=== PATIENT | male | born 1945 | race Caucasian/White ===

== ENCOUNTER 2017-07-24 18:12 | Outpatient (RCR) | payer MEDICARE, OTHER ==
[~2017-07-24] VITALS: Ht 177.8 cm; Wt 117.2 kg
[2017-07-24 08:33] VITALS: BP 120/83; PULSE 88; TEMP 98
[2017-07-24 08:36] LABS: INR 2.6 (0.8-3.0); PROTHROMBIN TIME 30.6 SECONDS (9.7-12.8)
[2017-07-24 08:49] LABS: CREATININE, serum 0.93 mg/dL (0.66-1.25)
[~2017-07-24 18:12] MED LIST: AMBIEN 10MG10 MG PO; ASPIRIN E.C. 8181 MG PO; CARDURA4 MG PO; COREG 3.123.125 MG/T PO; COUMADIN 1010 MG/TAB PO; KLONOPIN 1MG1 MG PO; LIPITOR 10MG10 MG PO; LOVENOX 100100 MG/ML SQ; MAXIPIME2 GM IJ; NEURONTIN300 MG/CAP PO; VALIUM 5MG T5 MG/TAB PO; VANCOCIN HCL 5200 ML IV; ZANTAC 150MG T150 MG PO; ZESTRIL 10MG10 MG PO
[2017-07-25 07:43] VITALS: BP 155/84; PULSE 85; TEMP 99.1
[2017-07-25] MEDS ORDERED: MELATONIN5 M1 PO (07:53)
[2017-07-25] MEDS ORDERED: FOLIC ACID0.4 MG PO (07:53)
[2017-07-25 08:32] LABS: INR 2.2 (0.8-3.0); PROTHROMBIN TIME 26.1 SECONDS (9.7-12.8)
[2017-07-26 06:50] LABS: INR 2.2 (0.8-3.0); PROTHROMBIN TIME 26.1 SECONDS (9.7-12.8)
[2017-07-26 08:23] VITALS: BP 168/90; PULSE 88; TEMP 98.2
== END 2017-07-26 16:00 | disposition home or self-care (01) ==
LOC: EUO 07-25 06:56
PROVIDERS: Emergency Medicine
DX: M86.9 Osteomyelitis, unspecified (principal)
CPT/HCPCS: J0692; J3370; J7040

== ENCOUNTER → 2017-08-02 | Outpatient (CLI) | payer MEDICARE, OTHER ==
[~2017-08-02] MED LIST changes: +FOLIC ACID0.4 MG PO; +MELATONIN5 M1 PO
== END ==
LOC: ZCOL.LAB 13:51
DX: S91.102A Unspecified open wound of left great toe without damage to nail, initial encounter (principal)

== ENCOUNTER 2017-08-16 10:54 | Day surgery (SDC) | payer MEDICARE, OTHER ==
[~2017-08-16] VITALS: Ht 177.8 cm; Wt 111.8 kg
[2017-08-16 12:09] VITALS: BP 163/95; PULSE 95; TEMP 97.6
[2017-08-16] MEDS ORDERED: COUMADIN 1010 MG/TAB PO (12:19)
[2017-08-16] MEDS ORDERED: NEURONTIN100 MG/CAP PO (12:23)
[2017-08-16] MEDS ORDERED: MOBIC15 MG PO (12:24)
[2017-08-16] MEDS ORDERED: DOXYCYCLINE 10100 MG PO (12:28)
[2017-08-16] MEDS ORDERED: CLEOCIN HCL75 MG PO (12:29)
[2017-08-16] MEDS ORDERED: MINOCYCLIN100 MG/CAP PO (12:30)
[2017-08-16] MEDS ORDERED: B-121000 MCG PO (12:32)
[2017-08-16] MEDS ORDERED: MASON NATURAL2000 IU (12:33)
[2017-08-16] MEDS ORDERED: VITAMIN B3 PO (12:34)
[2017-08-16] MEDS ORDERED: BIOTIN5000 MCG PO (12:35)
[2017-08-16] MEDS ORDERED: VITAMIN C500 MG PO (12:35)
[2017-08-16] MEDS ORDERED: CALCIUM CARBON650 M2 PO (12:36)
[2017-08-16] MEDS ORDERED: MAGNESIUM200 MG PO (12:36)
[2017-08-16] MEDS ORDERED: TYLENOL 500MG500 MG PO (12:37)
[2017-08-16 15:17] VITALS: BP 167/59; PULSE 102; TEMP 98.5
[2017-08-16 15:30] VITALS: BP 117/78; PULSE 104
[2017-08-16 16:00] VITALS: BP 151/77; PULSE 82
== END 2017-08-16 16:45 | disposition home or self-care (01) ==
LOC: SDCO 10:54
DX: L97.529 Non-pressure chronic ulcer of other part of left foot with unspecified severity (principal); L08.9 Local infection of the skin and subcutaneous tissue, unspecified; K21.9 Gastro-esophageal reflux disease without esophagitis; I10 Essential (primary) hypertension; I25.10 Atherosclerotic heart disease of native coronary artery without angina pectoris; G47.33 Obstructive sleep apnea (adult) (pediatric); E78.5 Hyperlipidemia, unspecified; Z79.82 Long term (current) use of aspirin; Z79.01 Long term (current) use of anticoagulants; Z88.0 Allergy status to penicillin; Z88.2 Allergy status to sulfonamides
CPT/HCPCS: J0690; J2704; J2795; J3010; J3370; J7030; J7120

== ENCOUNTER → 2020-05-14 | Outpatient (CLI) | payer MEDICARE, OTHER ==
[~2020-05-14] MED LIST changes: +B-121000 MCG PO; +BIOTIN5000 MCG PO; +CALCIUM CARBON650 M2 PO; +CLEOCIN HCL75 MG PO; +DOXYCYCLINE 10100 MG PO; +MAGNESIUM200 MG PO; +MASON NATURAL2000 IU; +MINOCYCLIN100 MG/CAP PO; +MOBIC15 MG PO; +NEURONTIN100 MG/CAP PO; +TYLENOL 500MG500 MG PO; +VITAMIN B3 PO; +VITAMIN C500 MG PO
== END ==
LOC: MHCPAIN 09:13
DX: M47.817 Spondylosis without myelopathy or radiculopathy, lumbosacral region (principal); M54.16 Radiculopathy, lumbar region; M79.2 Neuralgia and neuritis, unspecified; G89.29 Other chronic pain; G57.01 Lesion of sciatic nerve, right lower limb
CPT/HCPCS: G0463

== ENCOUNTER → 2020-06-20 | Outpatient (CLI) | payer MEDICARE, OTHER ==
[~2020-06-20] MED LIST changes: +ASPIRIN 81M81 MG/TA2 PO; +LOVENOX120 MG/0.8 SQ; +NITROSTAT0.4 MG/TAB SL; +NORCO 325 MG-101 TAB PO; +NORVASC 5MG5 MG/TAB PO; +PLAVIX 75MG TAB75 MG PO; +PRAVACHOL 20MG20 MG PO; +PROTONIX 40MG T40 MG PO; +VITAMIN B-625 MG PO
== END ==
LOC: COL.PUL 07:27
DX: R06.02 Shortness of breath (principal)

== ENCOUNTER → 2020-06-28 | Outpatient (CLI) | payer MEDICARE, OTHER | LOC: COL.RAD 06:39 | DX: R06.00 Dyspnea, unspecified (principal) | CPT/HCPCS: Q9967 ==

== ENCOUNTER 2020-07-16 08:30 | Outpatient (RCR) | payer MEDICARE, OTHER ==
[~2020-07-16 08:30] MED LIST changes: -ASPIRIN 81M81 MG/TA2 PO; -LOVENOX120 MG/0.8 SQ; -NITROSTAT0.4 MG/TAB SL; -NORCO 325 MG-101 TAB PO; -NORVASC 5MG5 MG/TAB PO; -PLAVIX 75MG TAB75 MG PO; -PRAVACHOL 20MG20 MG PO; -PROTONIX 40MG T40 MG PO; -VITAMIN B-625 MG PO
== END 2020-08-25 | disposition still patient (30) ==
LOC: WSPT
DX: M47.896 Other spondylosis, lumbar region (principal)

== ENCOUNTER 2020-09-27 06:20 | Day surgery (SDC) | payer MEDICARE, OTHER ==
[~2020-09-27] VITALS: Ht 177.8 cm; Wt 113.5 kg
[2020-09-27] VITALS (15 sets, daily range): BP systolic 94–130; BP diastolic 54–74; PULSE 33–73; TEMP 97.5–98; O2SAT 81
[2020-09-27] MEDS ORDERED: VITAMIN B-625 MG PO (06:43)
[2020-09-27 07:07] LABS: HEMOGLOBIN 15.8 g/dl (13.5-18.0); MEAN CELL VOLUME 91 fl (80.0-100.0); MEAN CORPUSCULAR HEMOGLOBIN 31 pg (27.0-31.0); MEAN CORPUSCULAR HGB CONC 34 g/dl (33.0-37.0); MEAN PLATELET VOLUME 10.3 fl (7.4-10.4); PLATELET COUNT 212 K/mm3 (130-400); RED BLOOD COUNT 5.16 M/mm3 (4.20-5.60); REDCELL DISTRIBUTION WIDTH-CV 12.5 % (11.5-14.5)
[2020-09-27] MEDS ORDERED: PLAVIX 75MG TAB75 MG PO (07:11)
[2020-09-27] MEDS ORDERED: NITROSTAT0.4 MG/TAB SL (07:12)
[2020-09-27] MEDS ORDERED: PRAVACHOL 20MG20 MG PO (07:12)
[2020-09-27] MEDS ORDERED: NORVASC 5MG5 MG/TAB PO (07:13)
[2020-09-27] MEDS ORDERED: PROTONIX 40MG T40 MG PO (07:13)
[2020-09-27] MEDS ORDERED: NORCO 325 MG-101 TAB PO (07:14)
[2020-09-27 07:24] LABS: ALBUMIN 4.5 gm/dL (3.5-5.0); CHOLESTEROL RISK RATIO 3.6; CREATININE, serum 1.23 (0.66-1.25); MAGNESIUM 2.2 mg/dL (1.6-2.3); POTASSIUM 4.6 mmol/L (3.4-5.0); TOTAL PROTEIN 7.5 gm/dL (6.4-8.2)
[2020-09-27 07:45] LABS: INR 1.1 (0.8-3.0); PROTHROMBIN TIME 12.3 SECONDS (9.7-12.8)
[2020-09-27 07:48] LABS: PARTIAL THROMBOPLASTIN TIME 28.3 SECONDS (26.0-37.0)
--- NOTE | 2020-09-27 10:20 | NUR ---
Report from Agustin COOK. Transferred by bed from [facility]. Right Tband with 14 cc air, CD&I, good pulses and cap refill < 3 secs. VSS. Alert and oriented.
--- NOTE | 2020-09-27 13:05 | NUR ---
14 cc air released from right Tabnd and dressing applied. VSS.
--- NOTE | 2020-09-27 15:15 | NUR ---
Report given to Ember COOK. [employer] to transfer pt to room 308
--- NOTE | 2020-09-27 16:35 | NUR ---
Pt admitted to medical unit rm 309 from [facility], awake and alert, ambulating in room with steady gait, denies pain or needs at this time. Right radial puncture site with dressing CDI. Call light in reach.
--- NOTE | 2020-09-27 17:45 | NUR ---
Provided pt with ID card for stents placed. Pt and pt's verbalize understanding. Pt denies further c/o or needs. Call light in reach.
--- NOTE | 2020-09-27 19:15 | NUR ---
Report with JOYCE Fraga.
--- NOTE | 2020-09-27 19:52 | NUR ---
PATIENT ALERT AND ORIENTED X4. AT BEDSIDE. DENIES PAIN, SIT IN RECLINER. NO SOB NOTED. RIGHT WRIST CATHERIZATION SITE INTACT NO BLEEDING NOTED. CALL LIGHT AT BEDSIDE.
[2020-09-28 00:07] VITALS: BP 114/64; PULSE 77; TEMP 97.4
[2020-09-28 04:04] VITALS: BP 110/64; PULSE 85; TEMP 97.7
[2020-09-28 07:07] LABS: CALCIUM 8.8 mg/dL (8.4-10.2); CREATININE, serum 1.06 (0.66-1.25); POTASSIUM 4.2 mmol/L (3.4-5.0)
[2020-09-28 07:18] LABS: BASO % 0.5 % (0.0-2.0); EOS # 0.2 (0.0-0.7); EOS % 2.1 % (0-4.0); GRAN # 6.7 (1.4-6.5); HEMATOCRIT 43.8 % (42.0-52.0); HEMOGLOBIN 14.5 g/dl (13.5-18.0); LYMPH # 1.2 (1.2-3.4); MEAN CELL VOLUME 92 fl (80.0-100.0); MEAN CORPUSCULAR HEMOGLOBIN 31 pg (27.0-31.0); MEAN CORPUSCULAR HGB CONC 33 g/dl (33.0-37.0); MEAN PLATELET VOLUME 10.9 fl (7.4-10.4); MONO # 0.7 (0.1-0.6); MONO % 8.1 % (1.7-9.3); PLATELET COUNT 178 K/mm3 (130-400); RED BLOOD COUNT 4.75 M/mm3 (4.20-5.60); REDCELL DISTRIBUTION WIDTH-CV 12.7 % (11.5-14.5)
[2020-09-28 08:03] VITALS: BP 135/58; PULSE 65; TEMP 97.8
--- NOTE | 2020-09-28 09:50 | NUR ---
Assessment completed, alert/oriented, vital signs stable, denies pain or discomfort, right radial access site looks good, no signs of bleeding or hematoma, heart RRR/ SR on tele, lungs CTA/ no reps.difficuly, tolerating PO intake, a.m meds given, anticipate discharge home today
[2020-09-28 11:40] VITALS: BP 135/60; PULSE 75; TEMP 97.8
[2020-09-28] MEDS ORDERED: LOVENOX120 MG/0.8 SQ (12:16)
[2020-09-28] MEDS ORDERED: ASPIRIN 81M81 MG/TA2 PO (12:23)
--- NOTE | 2020-09-28 12:30 | NUR ---
Discharge instructions reviewed with the patient and , instructed to take meds as prescribed, script for Lovenox sent to pharmacy for him, instructed to have INR check early next week, follow up as scheduled with PCP and Cardiolgoy, IV and tele removed, I will escort him out the door
== END 2020-09-28 12:32 | disposition home or self-care (01) ==
LOC: COL.CAR 06:20 → ICU 10:09 → MEDICAL 15:58 → COL.CAR 09-28 12:32
PROVIDERS: Internal Medicine Cardiovascular Disease
DX: I25.110 Atherosclerotic heart disease of native coronary artery with unstable angina pectoris (principal); I10 Essential (primary) hypertension; G62.9 Polyneuropathy, unspecified; E78.5 Hyperlipidemia, unspecified; Z86.718 Personal history of other venous thrombosis and embolism; Z86.711 Personal history of pulmonary embolism; Z95.818 Presence of other cardiac implants and grafts; Z79.01 Long term (current) use of anticoagulants; Z79.02 Long term (current) use of antithrombotics/antiplatelets
CPT/HCPCS: OP; C1725; C1769; C1874; C1887; C9600; J0583; J1644; J2250; J3010; Q9967

== ENCOUNTER 2020-12-20 13:01 | Day surgery (SDC) | payer MEDICARE, OTHER ==
[~2020-12-20] VITALS: Ht 177.8 cm; Wt 107.5 kg
[~2020-12-20 13:01] MED LIST changes: +ASPIRIN 81M81 MG/TA2 PO; +LOVENOX120 MG/0.8 SQ; +NITROSTAT0.4 MG/TAB SL; +NORCO 325 MG-101 TAB PO; +NORVASC 5MG5 MG/TAB PO; +PLAVIX 75MG TAB75 MG PO; +PRAVACHOL 20MG20 MG PO; +PROTONIX 40MG T40 MG PO; +VITAMIN B-625 MG PO
[2020-12-20 13:55] VITALS: BP 121/76; PULSE 93; TEMP 97.5
[2020-12-20 15:05] VITALS: BP 90/56; PULSE 87; TEMP 97.3
[2020-12-20 15:20] VITALS: BP 104/65; PULSE 94
[2020-12-20 15:35] VITALS: BP 102/64; PULSE 91
--- NOTE | 2020-12-20 16:00 | NUR ---
1505 - Patient returns from endo procedure via cart and RN assist to [facility]. Pt ambulates from cart to recliner with RN assist. Monitors on and alarms set. Call light within reach. Report received from JOYCE Sol. Pt alert and oriented. Pt requests apple juice. Pt denies any pain or nausea. Called , left message 1520 - Pt taking food and drink well. No complications noted. at bedside. 1535 - Dr in to speak with patient. Discharge instructions given to pt. All questions answered to patient and 's satisfaction. Handed to pt are a thank you card and discharge information. Instructed to dress and open door when ready for discharge. 1600 - Pt transferred out of the hospital via wheelchair and RN assist, to private vehicle driven by .
== END 2020-12-20 16:00 | disposition home or self-care (01) ==
LOC: SDCO 13:01
DX: K86.89 Other specified diseases of pancreas (principal); K31.89 Other diseases of stomach and duodenum; I10 Essential (primary) hypertension; K21.9 Gastro-esophageal reflux disease without esophagitis; I25.10 Atherosclerotic heart disease of native coronary artery without angina pectoris; G62.9 Polyneuropathy, unspecified; G47.33 Obstructive sleep apnea (adult) (pediatric); M19.90 Unspecified osteoarthritis, unspecified site; Z20.822 Contact with and (suspected) exposure to COVID-19; Z79.82 Long term (current) use of aspirin; Z79.01 Long term (current) use of anticoagulants; Z86.711 Personal history of pulmonary embolism; Z95.818 Presence of other cardiac implants and grafts; Z79.899 Other long term (current) drug therapy; Z89.429 Acquired absence of other toe(s), unspecified side
CPT/HCPCS: C1769; J7120